=== PATIENT | female | born 1980 | race Caucasian/White ===

== ENCOUNTER 2018-01-16 13:08 | Emergency (ER) | payer SELFPAY ==
--- NOTE | 2018-01-16 13:43 | EDM.PDOC ---
<Ester Tomas - Last Filed: 01/16/18 14:46> ED HPI GENERAL MEDICAL PROBLEM - General Chief Complaint: Lower Extremity Injury/Pain Stated Complaint: NUMBNESS IN LEFT SIDE Time Seen by Provider: 01/16/18 13:28 Source of Information: Reports: Patient History Limitations: Reports: No Limitations - History of Present Illness INITIAL COMMENTS - FREE TEXT/NARRATIVE: 37 yo female presents c/o generalized left sided pain. She reports falling on stairs while carrying a bag, onto her left side 3 days ago. Since then she believes her left foot pain is becoming worse and she now has pins and needles and tingling in her heel, knee and groin. She said lying down at night her left arm will also get shooting pain and pins and needles in the underarm, elbow and hand. She has taken 1500mg Tylenol and 600mg ibuprofen before coming here today, with minimal relief of pain. She has a h/o epilepsy but denies any other neurologic conditions. She denies hitting her back or neck while falling. No back problems. Duration: Day(s): (3 days ago) Location: Reports: Lower Extremity, Left Quality: Reports: Ache, Burning, Sharp, Stabbing Severity: Moderate Improves with: Reports: None Worsens with: Reports: Movement Context: Reports: Trauma (fall down a couple stairs, sliding on L side) Associated Symptoms: Reports: No Other Symptoms Treatments DIRECTOR OPERATING: Reports: Acetaminophen, NSAIDS Left Leg Pain Score (Numeric/FACES): 6 - Related Data Allergies Allergy/AdvReac Type Severity Reaction Status Date / Time carbamazepine [From Tegretol] Allergy Hives Verified 01/16/18 13:24 Home Meds: Home Meds . 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 Denies: Chills, Fever, Weakness Eyes: Reports: No Symptoms Ears: Reports: No Symptoms Nose: Reports: No Symptoms Mouth/Throat: Reports: No Symptoms Respiratory: Reports: No Symptoms. Denies: Shortness of Breath, Pleuritic Chest Pain Cardiovascular: Reports: No Symptoms GI/Abdominal: Reports: No Symptoms Genitourinary: Reports: No Symptoms Musculoskeletal: Reports: Leg Pain (Left), Foot Pain (Left), Other (Left heel pain, left groin pain) Skin: Reports: No Symptoms. Denies: Change in Color Neurological: Reports: Other (intermittent numbness, tingling and pins and needles of L heel radiating up the leg). Denies: Dizziness, Headache Psychiatric: Reports: No Symptoms ED EXAM, GENERAL - Physical Exam Exam: See Below Exam Limited By: No Limitations General Appearance: Alert, WD/WN, Anxious Ears: Hearing Grossly Normal Head: Atraumatic, Normocephalic Neck: Normal Inspection, Supple, Non-Tender, Full Range of Motion Respiratory/Chest: No Respiratory Distress, Lungs Clear, Normal Breath Sounds, No Accessory Muscle Use, Chest Non-Tender Cardiovascular: Normal Peripheral Pulses, Regular Rate, Rhythm, No Edema, No Gallop, No Murmur, No Rub GI/Abdominal: Soft, Non-Tender Back Exam: Normal Inspection, Full Range of Motion, Other (while palpating entire spine pt reports it caused increased pain in the L heel, no tenderness to palpation on the spine itself). No: Paraspinal Tenderness, Vertebral Tenderness Extremities: Normal Inspection, Normal Range of Motion, No Pedal Edema, Normal Capillary Refill, Leg Pain, Other (left heel tender to palpation, left groin and popliteal region tender as well) Neurological: Alert, Oriented, Normal Cognition, Sensory/Motor Deficit ( decreased sensation of plantar aspect of L foot. appropriate reflexes) Psychiatric: Anxious Skin Exam: Warm, Dry, Intact, Normal Color, No Rash. No: Ecchymosis, Erythema, Wound/Incision Course - Vital Signs Last Recorded V/S: Last Vital Signs Temp 98.0 F 01/16/18 13:15 Pulse 105 H 01/16/18 13:15 Resp 20 01/16/18 13:15 BP 146/80 H 01/16/18 13:15 Pulse Ox 100 01/16/18 13:15 - Orders/Labs/Meds Orders: Active Orders 24 hr Category Date Time Status Foot Comp Min 3V Lt [CR] Stat Exams 01/16/18 13:52 Taken Meds: Medications Discontinued Medications Generic Name Dose Route Start Last Admin Trade Name Darya PRN Reason Stop Dose Admin Hydrocodone Bitart/Acetaminophen 1 tab 01/16/18 14:51 01/16/18 14:58 [place] 325-5 Mg PO 01/16/18 14:52 1 tab ONETIME ONE Administration Departure - Departure Disposition: Home, Self-Care 01 Clinical Impression: Uses crutches Contusion of foot, left Qualifiers: Encounter type: initial encounter Qualified Code(s): S90.32XA - Contusion of left foot, initial encounter Knee sprain Qualifiers: Encounter type: initial encounter Involved ligament of knee: unspecified ligament Laterality: left Qualified Code(s): S83.92XA - Sprain of unspecified site of left knee, initial encounter - Discharge Information Instructions: Crutch Use, Adult, [id number], Foot Contusion, [id number], Foot Sprain, Contusion, [id number], Knee Sprain, Adult Referrals: PCP,None [Primary Care Provider] - Forms: ED Department Discharge Additional Instructions: You are to be non weightbearing, toe touch only for balance, use crutches to ambulate. Elevate when able to reduce any swelling and pain. Apply ice to the affected area 4 times daily, 30 minutes in duration, do not apply directly on the skin. Take ibuprofen and tylenol in alternating fashion for pain. Followup with or Dr. Austin orthopedic surgeons in 10 to 14 days if symptoms have not drastically improved. Refrain from any activities that cause worsening pain. Return to the E.D. if you develop any new or worsening symptoms. - My Orders Last 24 Hours: My Active Orders 01/16/18 13:52 Foot Comp Min 3V Lt [CR] Stat - Assessment/Plan Last 24 Hours: My Active Orders 01/16/18 13:52 Foot Comp Min 3V Lt [CR] Stat <Marlon Santiago O - Last Filed: 01/16/18 22:51> ED EXAM, GENERAL - Physical Exam Extremities: Leg Pain (No posterior leg pain with examination. No increased swelling. No findings concerning for DVT. Pain to the leg is broughout on with palpation of the calcaneous. ) Course - Orders/Labs/Meds Meds: Medications Discontinued Medications Generic Name Dose Route Start Last Admin Trade Name Darya PRN Reason Stop Dose Admin Hydrocodone Bitart/Acetaminophen 1 tab 01/16/18 14:51 01/16/18 14:58 [place] 325-5 Mg PO 01/16/18 14:52 1 tab ONETIME ONE Administration - Re-Assessments/Exams Free Text/Narrative Re-Assessment/Exam: Agree with HPI and physical examination findings by Yasmin COLINDRES. Patient had all symptoms prior to traveling from [place] to [place]. Pain up the leg is precipitated with palpation and or weightbearing on the heal. She has no posterior leg pain upon palpation and or findings concerning for DVT. She has no history of DVT, control use, and or smoking hx. Peripheral pulses are intact. Skin, pink, warm, and dry. X-ray of the left foot reviewed with Dr. Vuong did not reveal any acute bony abnormalities. Final interpretation pending. Ordered mariola wrap and crutches for heal contusion and left knee sprain. 01/16/18 14:51 Prior to discharge patient requests medication for pain. I have ordered norco 5-325mg PO. Departure - Departure Time of Disposition: 14:19 Condition: Good
[2018-01-16] MEDS ORDERED: Acetaminophen/HYDROcodone 325-5 MG Tab PO ONE (14:51)
--- NOTE | 2018-01-18 09:55 | CR ---
Left foot: Four views of the left foot were obtained. Comparison: No previous left foot exam. Joint spaces are maintained. No fracture, dislocation or other bony abnormality is identified. Impression: 1. No abnormality is appreciated on left foot exam. Diagnostic code #1
== END 2018-01-16 15:00 | disposition home or self-care (01) ==
LOC: JD.ED 13:08
DX: S83.92XA Sprain of unspecified site of left knee, initial encounter (principal); S90.32XA Contusion of left foot, initial encounter; W10.9XXA Fall (on) (from) unspecified stairs and steps, initial encounter; Z88.8 Allergy status to other drugs, medicaments and biological substances
CPT/HCPCS: 73630; 99283; A9270

== ENCOUNTER 2018-01-21 18:03 | Emergency (ER) | payer SELFPAY ==
--- NOTE | 2018-01-21 18:50 | EDM.PDOC ---
ED HPI GENERAL MEDICAL PROBLEM - General Chief Complaint: Lower Extremity Injury/Pain Stated Complaint: LT FOOT PAIN Time Seen by Provider: 01/21/18 18:30 Source of Information: Reports: Patient History Limitations: Reports: No Limitations - History of Present Illness INITIAL COMMENTS - FREE TEXT/NARRATIVE: Fadia is a 37yo female presents ambulatory to ED this evening with c/o persistent left foot pain and leg pain. She was here 5 days ago with similar symptoms of foot pain s/p fall down the stairs at her house in [place] prior to moving to [place]. She fell down stairs and then got in car to drive to [place] over 3 days. She has hx of tibial plateau fx to her left knee, nonsurgically treated and healed now. She favors her right leg due to this injury. She feels terrible pain to her left foot, ball and heel with "pins and needles" sensation from her heel radiating up her leg. Has twinges of pain to her calf, posterior knee and medial thigh to her groin. She has been taking advil with minimal relief now. She has been elevating and laying for the past week wt heat and ice without relief. She cannot sleep as the pain wakes her up. She has hx of epilepsy, nephrolithiasis, tibial plateau fx, nonsurgical treatment and 3 vaginal deliveries. Left Groin Pain Score (Numeric/FACES): 6 - Related Data Allergies Allergy/AdvReac Type Severity Reaction Status Date / Time carbamazepine [From Tegretol] Allergy Hives Verified 01/16/18 13:24 Home Meds: Home Meds . 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: Musculoskeletal History: Reports: Other (See Below) Other Musculoskeletal History: Tibial plateau fracture left knee Neurological History: Reports: Other (See Below) Other Neuro History: epilepsy-only when she sleeps; does not take medication - Past Surgical History Female Surgical History: Reports: Lithotripsy/ESWL, Tubal Ligation Social & Family History - Tobacco Use Smoking Status *Q: Never Smoker - Caffeine Use Caffeine Use: Reports: Tea - Recreational Drug Use Recreational Drug Use: No Review of Systems - Review of Systems Review Of Systems: See Below Constitutional: Reports: No Symptoms Eyes: Reports: No Symptoms Ears: Reports: No Symptoms Nose: Reports: No Symptoms Mouth/Throat: Reports: No Symptoms Respiratory: Reports: No Symptoms Cardiovascular: Reports: No Symptoms GI/Abdominal: Reports: No Symptoms Musculoskeletal: Reports: Leg Pain, Foot Pain Neurological: Reports: Numbness, Paresthesia (to left foot/leg- see HPI), Tingling Psychiatric: Reports: No Symptoms ED EXAM, GENERAL - Physical Exam Exam: See Below Exam Limited By: No Limitations General Appearance: Alert, WD/WN, No Apparent Distress Eye Exam: Bilateral Eye: EOMI, PERRL Ears: Normal External Exam, Hearing Grossly Normal Nose: Normal Inspection Throat/Mouth: Normal Inspection, Normal Teeth, Normal Gums, Normal Voice Head: Atraumatic, Normocephalic Neck: Normal Inspection Respiratory/Chest: No Respiratory Distress, Lungs Clear Cardiovascular: Normal Peripheral Pulses, Regular Rate, Rhythm, No Edema, No Murmur Peripheral Pulses: 2+: Posterior Tibial (L), Posterior Tibial (R), Dorsalis Pedis (L), Dorsalis Pedis (R) GI/Abdominal: Normal Bowel Sounds (Female) Exam: Deferred Rectal (Female) Exam: Deferred Back Exam: Normal Inspection Extremities: Normal Inspection, No Pedal Edema, Normal Capillary Refill, Leg Pain. No: Non-Tender (tenderness to left heel, arch of left foot with palpation. ROM to foot is WNL but does cause leg pain up into calf, posterior knee and medial thigh. Palp of calf and popliteal space is "sore and bruised feeling". medial thigh is without tenderness to palpation but "just feels sore" . ), Joint Swelling, Fabiana's Sign, Limited Range of Motion, Increased Warmth, Redness Neurological: Alert, Oriented, CN II-XII Intact, Normal Cognition, Normal Gait, Normal Reflexes Psychiatric: Normal Affect, Normal Mood Skin Exam: Warm, Dry, Intact, No Rash. No: Ecchymosis, Erythema, Increased Warmth Lymphatic: No Adenopathy Course - Vital Signs Last Recorded V/S: Last Vital Signs Temp 97.9 F 01/21/18 18:22 Pulse 86 01/21/18 18:22 Resp 20 01/21/18 18:22 BP 126/102 H 01/21/18 18:22 Pulse Ox 100 01/21/18 18:22 - Orders/Labs/Meds Orders: Active Orders 24 hr Category Date Time Status Foot wo Cont Lt [CT] Stat Exams 01/21/18 18:59 Taken Labs: Laboratory Tests 01/21/18 01/21/18 Range/Units 19:20 19:20 D-Dimer, Quantitative 0.33 (0.19-0.50) mg/L Sodium 138 (136-145) mEq/L Potassium 3.7 (3.5-5.1) mEq/L Chloride 103 (98-107) mEq/L Carbon Dioxide 27 (21-32) mEq/L Anion Gap 11.7 (5-15) BUN 26 H (7-18) mg/dL Creatinine 0.9 (0.55-1.02) mg/dL Est Cr Clr Drug Dosing 80.90 mL/min Estimated GFR (MDRD) > 60 (>60) mL/min BUN/Creatinine Ratio 28.9 H (14-18) Glucose 101 (74-106) mg/dL Calcium 8.9 (8.5-10.1) mg/dL Meds: Medications Discontinued Medications Generic Name Dose Route Start Last Admin Trade Name Freq PRN Reason Stop Dose Admin Hydrocodone Bitart/Acetaminophen 1 tab 01/21/18 20:19 [place] 325-5 Mg PO 01/21/18 20:20 ONETIME ONE Famotidine 20 mg 01/21/18 18:59 01/21/18 19:33 Pepcid IVPUSH 01/21/18 19:00 20 mg ONETIME ONE Administration Ketorolac Tromethamine 30 mg 01/21/18 18:59 01/21/18 19:35 Toradol IVPUSH 01/21/18 19:00 30 mg ONETIME ONE Administration - Radiology Interpretation CT Results Date: 01/21/18 ([facility] CT report with normal left foot CT) - Re-Assessments/Exams Free Text/Narrative Re-Assessment/Exam: 01/21/18 20:21 States toradol did nothing for her pain. CT report back and negative, d.dimer is negative. Will give PO hydrocodone; she tells nursing is going to pick her up. Reivewed case and CT imaging with Dr. Pollard. Likely pulled plantar fascia, CT shows small calcification in plantar fascia tendon as well. Will continue with conservative treatment. Departure - Departure Time of Disposition: 20:23 Disposition: Home, Self-Care 01 Condition: Good Clinical Impression: Plantar fascia syndrome - Discharge Information Instructions: Plantar Fasciitis, Foot Sprain, Plantar Fasciitis With Rehab- SportsMed Referrals: PCP,Not In Area [Primary Care Provider] - Forms: ED Department Discharge Additional Instructions: CT scan of foot shows a calcification in your plantar fascia tendon. This is an old injury but with your recent fall has likely contributing to this pain/ injury. Recommend continue with ice, elevation, crutches. Slowly back into activity. Recommend if continued pain to followup/consult with Orthopedics as previously discussed/recommended. Hydrocodone prescription for short term use for acute pain. Instymed prescription given. D.dimer test for screening for blood clot is normal so no concern for DVT/blood clot at this time. If leg becomes swollen return to ER. - My Orders Last 24 Hours: My Active Orders 01/21/18 18:59 Foot wo Cont Lt [CT] Stat - Assessment/Plan Last 24 Hours: My Active Orders 01/21/18 18:59 Foot wo Cont Lt [CT] Stat
[2018-01-21] MEDS ORDERED: Famotidine 20 MG/2 ML SDV IVPUSH ONE (18:59)
[2018-01-21] MEDS ORDERED: Ketorolac 30 MG/ML SDV IVPUSH ONE (18:59)
[2018-01-21] MEDS ORDERED: Acetaminophen/HYDROcodone 325-5 MG Tab PO ONE (20:19)
--- NOTE | 2018-01-23 09:03 | CT ---
CT left foot Technique: Multiple axial sections through the left foot were obtained. Reconstructed coronal and sagittal images were obtained. Intravenous contrast was not utilized. Findings: Previous plain film left foot exam of 01/16/18. Findings: Joint spaces are preserved. No acute fracture or other bony abnormality is identified. Impression: 1. Nothing acute is appreciated on CT study of the left foot. Diagnostic code #1 Agree with preliminary report issued by [facility] ([facility] preliminary report dictated on 01/21/18, 9:04 PM Central Time) MADELEINE
== END 2018-01-21 21:00 | disposition home or self-care (01) ==
LOC: JD.ED 18:03
DX: M72.2 Plantar fascial fibromatosis (principal); Z88.8 Allergy status to other drugs, medicaments and biological substances
CPT/HCPCS: 36415; 73700; 80048; 85379; 96374; 96375; 99284; A9270; J1885; 99283